=== PATIENT | female | born 1935 | race Caucasian/White ===

== ENCOUNTER 2022-02-05 07:56 | Outpatient (CLI) | payer MEDICARE ==
[2022-02-05] VITALS (8 sets, daily range): BP systolic 133–172; BP diastolic 59–71
[2022-02-05] MEDS ORDERED: regadenoson 0.4mg/5ml syringe IV ONE (09:20)
[2022-02-05] MEDS ORDERED: metoprolol tartrate 1mg/ml inj IV PRN (09:20)
[2022-02-05] MEDS ORDERED: regadenoson 0.4mg/5ml syringe IV PRN (09:20)
[2022-02-05] MEDS ORDERED: aminophylline 500mg/20ml vial ONE (09:27)
[2022-02-05] MEDS ORDERED: HYDR50TA65 PO (19:33)
[2022-02-05] MEDS ORDERED: LEVO125T PO (19:33)
[2022-02-05] MEDS ORDERED: ASPI-611 PO (19:33)
[2022-02-05] MEDS ORDERED: CALC-89 PO (19:33)
[2022-02-05] MEDS ORDERED: METO-395 PO (19:33)
[2022-02-05] MEDS ORDERED: CLOP75TA33 PO (19:33)
[2022-02-05] MEDS ORDERED: LISI20TA28 PO (19:33)
[2022-02-05] MEDS ORDERED: POTA8CAP20 PO (19:33)
[2022-02-05] MEDS ORDERED: FURO-150 PO (19:33)
== END 2022-02-05 23:59 | disposition home or self-care (01) ==
LOC: RAD 07:56
PROVIDERS: ATTEND Internal Medicine Cardiovascular Disease
DX: I50.9 Heart failure, unspecified (principal); R94.31 Abnormal electrocardiogram [ECG] [EKG]
CPT/HCPCS: 78452; 93017; A9500; J2785; J0280; J3490

== ENCOUNTER 2024-12-31 09:26 | Outpatient (CLI) | payer MEDICARE ==
[~2024-12-31 09:26] MED LIST: ACET-75 PO; ASPI-611 PO; BRIM5DRO6 EACHEYE; BUPR-726 PO; CALC-89 PO; CLOP75TA33 PO; ESOM20CA37 PO; FURO-150 PO; HYDR50TA65 PO; LEVO125T PO; LISI20TA28 PO; MAGN400C PO; MELA5TAB12 PO; METO-395 PO; POTA8CAP20 PO; ROSU20TA2 PO; XAL0.005OS OP
--- NOTE | 2024-12-31 13:50 | RADIOLOGY REPORT ---
CINE SWALLOW STUDY - WITH SPEECH PATHOLOGY Exam Date: 12/31/2024 09:55 AM Comparison: None History: DYSPHAGIA,COUGH Technique: Thin barium, thick barium, pudding-consistency barium, honey-consistency barium, nectar-c onsistency barium, and barium with crackers were administered to the patient in succession by speech pathology. Deglutition was monitored under fluoroscopy in a lateral view and recorded on video. Findings: There was no evidence of delay in the initiation of swallowing. There was no evidence of laryngeal p enetration or tracheal aspiration. IMPRESSION: No evidence for aspiration. A full report will be forthcoming from speech pathology. END IMPRESSION:
--- NOTE | 2024-12-31 20:54 | CONSULTATION ---
DATE OF CONSULTATION: 12/31/2024 DICTATING PHYSICIAN: Paulina Currie M.S., [facility] MODIFIED BARIUM SWALLOW STUDY REPORT REFERRING PHYSICIAN: Cruz Pa MD HISTORY OF PRESENT ILLNESS: The patient is an 89-year-old female and consents to this evaluation. The patient's daughter was present for this evaluation. In history obtained from the patient and the patient's daughter, the patient reports symptoms of dysphagia including coughing every time that she eats. She notes that this has been occurring for about 6 months and that she has gotten to the point where she does not want to eat because she coughs too much. She also notes that sometimes her coughing can occur with liquids as well. The patient has a history of multiple CVAs with the most recent one being a TIA during a hip surgery about 2 years ago. Ever since her first stroke was when she started having difficulty with her swallowing. CURRENT DIET: The patient is currently on a regular textured thin liquid diet with no food avoidances at this time. MEDICATIONS: Levothyroxine 88 mcg once daily orally, metoprolol 25 mg once daily orally, furosemide 20 mg once daily orally, clopidogrel 75 mg once daily orally, lisinopril 20 mg once daily orally, folic acid 1 mg once daily orally, aspirin 325 mg once daily orally, bupropion HCL 150 mg once daily orally, acetaminophen 500 mg once daily orally, trimethoprim 100 mg once daily orally, omeprazole 20 mg once daily orally, rosuvastatin 20 mg once daily orally, hydroxyzine 50 mg once daily orally, metoprolol 25 mg at bedtime orally, melatonin 10 mg once daily orally. PARAMETERS: The patient is seated in a lateral 90-degree view and administered the usual protocol of thin and nectar thick liquids, puree and solid consistency, as well as self-regulated boluses of thin liquids from a cup. RESULTS: In the oral stage of the swallow, the patient is easily able to transfer the bolus from the anterior to the posterior oral cavity. There does not appear to be any difficulty with strength or range of motion of the tongue. In the pharyngeal stage of the swallow, swallow initiation is delayed with thin liquids with 3 mL thin liquid and self-regulated thin liquid residing at the level of the vallecula before a swallow was initiated and with the 5 mL thin liquid residing at the level of the piriformis before the swallow was initiated. This is likely due to decreased sensation to trigger cranial nerve 9, which triggers the swallowing reflex. Tongue base retraction is mildly reduced. Elevation of the hyothyroid complex is accomplished with full range of motion. There is a mild pharyngeal residue at the level of the vallecula following initial swallow of the boluses and PES opening is within functional limits. At no time is the patient noted to penetrate or aspirate on any of the bolus sizes or consistencies. It was noted that with the first swallow that the patient did, that she utilized a head position, in which she would look up and tilt the head back to propel the bolus from the oral cavity to the pharyngeal cavity and so she was instructed to utilize a neutral head position for the rest of the boluses. ANTERIOR, POSTERIOR VIEW: In the AP plane, the bolus splits symmetrically between the piriform sinuses and there was proximal movement of the boluses to the level of the mid sternum. 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 PATIENT EDUCATION: Immediately following modified barium swallow study, the patient and her daughter were able to view the results. The normal anatomy of the swallowing mechanism was revealed. She was able to see the delayed swallow initiation of thin liquid boluses and the proximal movement of the boluses in the AP view. The patient was educated on keeping a neutral head posture when swallowing. She was also educated on utilizing small bites and sips and eating at a slowed rate as the patient's daughter reported that she tends to fill her mouth entirely with food and eat at a very quick pace. The patient was also educated on taking her omeprazole 15-20 minutes before lunch as she has been taking it first thing in the morning and does not eat until lunchtime and she was educated on dietary modifications for laryngopharyngeal reflux disease. RECOMMENDATIONS: * It is recommended that the patient utilize the above-mentioned safe swallowing strategies including keeping a neutral head position rather than tilting her head back, having smaller bites and sips, and eating at a slower rate, and taking her omeprazole 15-20 minutes before lunch versus first thing in the morning. * It is recommended that the patient receive swallowing therapy one time weekly for 12 weeks to further instruct in safe swallowing strategies and target the sensory aspect of the swallow. The patient indicated that she would like to try to use strategies first and that if she is still having trouble after implementing the strategies that she would call to schedule an appointment. PROGNOSIS: Prognosis for the patient is good in terms of family support. LONG-TERM GOALS: The patient will maintain adequate hydration/nutrition with optimum safety and efficiency of swallow function on p.o. intake without overt signs and symptoms of aspiration for the highest possible diet level. FUNCTIONAL ORAL INTAKE: The FOIS was administered to establish and document a change in the functional eating activities of this patient over time. This is a 7-point scale with 1 indicating no oral intake and totally tube dependent, and 7 indicating total oral intake with no restrictions. This patient received a 6, which indicates she has a total oral diet with multiple consistencies without special preparation, but with specific food limitations and precaution. G-CODE: [id number] Thank you very much for asking me to participate in the care of this kind patient. Should you have any questions regarding this evaluation or recommendations, please do not hesitate to contact me at [phone]. During this examination, 3:01 minutes of fluoroscopy time and 11.88 CAK mGy were utilized. Paulina Currie M.S., [employer] TID: [id number] RECEIPT: [id number] CALISTA HERNANDEZ
== END 2024-12-31 23:59 | disposition home or self-care (01) ==
LOC: RAD 09:26
PROVIDERS: ATTEND Internal Medicine
DX: I69.391 Dysphagia following cerebral infarction (principal); R05.9 Cough, unspecified; R13.12 Dysphagia, oropharyngeal phase; Z79.82 Long term (current) use of aspirin; Z79.899 Other long term (current) drug therapy
CPT/HCPCS: 74230